=== PATIENT | male | born 1965 | race Caucasian/White ===

== ENCOUNTER 2016-05-01 20:06 | Emergency (ER) | payer OTHER ==
[~2016-05-01] VITALS: Ht 167.6 cm; Wt 78.5 kg
[2016-05-01 21:17] VITALS: Ht 167.6 cm; Wt 78.5 kg
[2016-05-01] MEDS ORDERED: DICLOFENAC SODIUM 37.5 MG/ML VIAL IV STA (21:51)
[2016-05-01] MEDS ORDERED: SOD CHLORIDE 0.9% 1,000 ML IV STA (21:51)
[2016-05-01 22:25] LABS: ADD SCAN DIFF NO
[2016-05-01 22:27] LABS: BASOPHIL # 0.1 10^3/ul (0.0-0.1); BASOPHILS % 0.8 % (0.0-2.0); EOSINOPHILS # 0.5 10^3/ul (0.0-0.5); HEMATOCRIT 41.6 % (42.0-52.0); HEMOGLOBIN 14.2 g/dl (14.0-18.0); LYMPHOCYTES # 2.8 10^3/ul (0.8-2.9); LYMPHOCYTES % 35.8 % (15.0-51.0); MEAN CORPUSCULAR HEMOGLOBIN 31.8 pg (29.0-33.0); MEAN CORPUSCULAR HGB CONC 34.1 g/dl (32.0-37.0); MEAN CORPUSCULAR VOLUME 93.1 fl (82.0-101.0); MEAN PLATELET VOLUME 10.6 fl (7.4-10.4); MONOCYTE # 0.7 10^3/ul (0.3-0.9); MONOCYTES % 8.5 % (0.0-11.0); NEUTROPHIL # 3.8 10^3/ul (1.6-7.5); NEUTROPHILS % 48.4 % (39.0-77.0); PLATELET COUNT 223 10^3/UL (140-415); RED BLOOD COUNT 4.47 10^6/ul (4.70-6.10); RED CELL DISTRIBUTION WIDTH 13.1 % (11.5-14.5); WHITE BLOOD COUNT 7.8 10^3/ul (4.8-10.8)
[2016-05-01 22:29] LABS: ADD UMIC YES; URINE BILIRUBIN (Dip) NEGATIVE (NEGATIVE); URINE BLOOD (Dip) 3+ (NEGATIVE); URINE COLOR YELLOW (YELLOW); URINE GLUCOSE (Dip) NEGATIVE (NEGATIVE); URINE KETONES (Dip) TRACE (NEGATIVE); URINE LEUKOCYTE ESTERASE (Dip) NEGATIVE (NEGATIVE); URINE NITRITE (Dip) NEGATIVE (NEGATIVE); URINE TOTAL PROTEIN (Dip) TRACE (NEGATIVE); URINE UROBILINOGEN (Dip) 1.0 E.U./dL (0.1-1.0)
--- NOTE | 2016-05-01 22:35 | RADRPT ---
PROCEDURE: CT KUB. CLINICAL INDICATION: Lower abdominal pain, pelvic pain, and painful urination TECHNIQUE: CT KUB (Renal Stone Survey) without contrast was performed on a [employer] volumetric [address] scanner. No IV contrast was administered. 3-D coronal reformatted images were obtained from the axial source images. CTDI: 12.4 mGy DLP: 664 mGy-cm COMPARISON: No prior studies are available for comparison. FINDINGS: Limited evaluation of the lung bases are clear. No pleural effusion. A hypodense lesion within the inferior right liver lobe measuring approximately 8 mm is incompletely characterized without intravenous contrast but may represent a cyst. Otherwise, the unenhanced lucrecia er is normal-appearing. The unenhanced spleen, bilateral adrenal glands, pancreas, and gallbladder are normal-appearing. No biliary dilatation. Aside from a few tiny sub-centimeter right renal hypodense lesions which may represent cysts, the ki dneys are normal-appearing without hydronephrosis. The appendix is normal. There is sigmoid bowel wall thickening associated with pericolonic fat stranding on a background of diverticulosis consistent with acute uncomplicated sigmoid diverticulitis. No fluid collections. N o free air. No abdominal pelvic adenopathy. No bowel obstruction. The urinary bladder is decompressed and suboptimally evaluated. The abdominal aorta is normal in caliber though incompletely characterized without intravenous contr ast. No suspicious osseous lesions. Degenerative disk disease at L5-S1. IMPRESSION: Acute sigmoid diverticulitis without fluid collection or free air. Urinary bladder is decompressed but is situated adjacent to the inflammatory colonic changes. Physician Lara Date Time Electronically viewed and signed by Physician Lara on 05/01/2016 22:35 ML/
[2016-05-01 22:37] LABS: ALBUMIN 4.2 g/dl (3.3-4.9); POTASSIUM 3.5 mmol/L (3.5-5.1)
[2016-05-01 22:39] LABS: BILIRUBIN,INDIRECT 0.2 mg/dl (0-1.1); BILIRUBIN,TOTAL 0.2 mg/dl (0.2-1.3); CREATININE 0.89 mg/dl (0.61-1.24)
[2016-05-01 22:40] LABS: ALBUMIN/GLOBULIN RATIO 1.31; CALCIUM 8.6 mg/dl (8.4-10.2); TOTAL PROTEIN 7.4 g/dl (6.1-8.1)
[2016-05-01 23:01] LABS: BACTERIA,URINE RARE
[2016-05-01] MEDS ORDERED: CIPR500T4 PO (23:09)
[2016-05-01] MEDS ORDERED: METR500T14 PO (23:09)
--- NOTE | 2016-05-01 23:12 | ERD ---
ER Documentation Chief Complaint Date/Time DATE: 05/01/16 TIME: 23:10 Chief Complaint Pelvic pain with painful urination and frequency of urination HPI Patient is a 50-year-old male who presents with lower left-sided abdominal pain that he has had for 2 days. He denies any nausea or vomiting. Does state he has had a fever on and off. Denies any dysuria hematuria or increased urinary frequency. Denies any diarrhea. Denies any testicular pain. Has not taken any medications for this. ROS All systems reviewed and are negative except as per history of present illness. Medications Home Meds Active Scripts Metronidazole* (Metronidazole*) 500 Mg Tablet, 500 MG PO TID for 10 Days, TAB Prov:LUPE GREENBERG PA-C 05/01/16 Ciprofloxacin Hcl* (Ciprofloxacin Hcl*) 500 Mg Tablet, 500 MG PO BID for 10 Days , TAB Prov:LUPE GREENBERG PA-C 05/01/16 Allergies Allergies: Coded Allergies: No Known Allergy (Unverified , 05/01/16) PMhx/Soc Medical and Surgical Hx: pt denies Medical Hx, pt denies Surgical Hx Hx Alcohol Use: No Hx Substance Use: No Hx Tobacco Use: No Smoking Status: Never smoker FmHx Family History: No diabetes Physical Exam Vitals Vital Signs Date Time Temp Pulse Resp B/P Pulse Ox O2 Delivery O2 Flow Rate FiO2 05/01/16 21:17 99.6 91 18 126/75 97 Physical Exam General: well developed, well nourished, alert, nontoxic, no distress Head: normocephalic, atraumatic Eyes: PERRL, normal conjunctiva Neck: Supple, nontender, no lymphadenopathy, no midline tenderness Respiratory: Clear to auscaultation bilaterally, speaks in full sentences, no use of accesory muscles or labored breathing, no rales, ronchi, or wheezing Cardiovascular: RRR, No murmurs GI: soft, left lower quadrant tenderness, non distended, negative murphys sign, negative mcburneys point tenderness, no cva tenderness bilaterally, no rebound or guarding Result Diagram: 05/01/16220405/01/162204 Results 24 hrs Laboratory Tests Test 05/01/16 22:05 05/01/16 22:10 White Blood Count 7.810^3/ul Red Blood Count 4.4710^6/ul Hemoglobin 14.2g/dl Hematocrit 41.6% Mean Corpuscular Volume 93.1fl Mean Corpuscular Hemoglobin 31.8pg Mean Corpuscular Hemoglobin Concent 34.1g/dl Red Cell Distribution Width 13.1% Platelet Count 75465^3/UL Mean Platelet Volume 10.6fl Neutrophils % 48.4% Lymphocytes % 35.8% Monocytes % 8.5% Eosinophils % 6.0% Basophils % 0.8% Nucleated Red Blood Cells % 0.0/100WBC Neutrophils # 3.810^3/ul Lymphocytes # 2.810^3/ul Monocytes # 0.710^3/ul Eosinophils # 0.510^3/ul Basophils # 0.110^3/ul Nucleated Red Blood Cells # 0.010^3/ul Sodium Level 142mmol/L Potassium Level 3.5mmol/L Chloride Level 104mmol/L Carbon Dioxide Level 25mmol/L Anion Gap 17 Blood Urea Nitrogen 20mg/dl Creatinine 0.89mg/dl Glucose Level 111mg/dl Calcium Level 8.6mg/dl Total Bilirubin 0.2mg/dl Direct Bilirubin 0.00mg/dl Indirect Bilirubin 0.2mg/dl Aspartate Amino Transf (AST/SGOT) 53IU/L Alanine Aminotransferase (ALT/SGPT) 53IU/L Alkaline Phosphatase 116IU/L Total Protein 7.4g/dl Albumin 4.2g/dl Globulin 3.20g/dl Albumin/Globulin Ratio 1.31 Lipase 75U/L Urine Color YELLOW Urine Clarity CLEAR Urine pH 6.0 Urine Specific Brielle 1.025 Urine Ketones TRACE Urine Nitrite NEGATIVE Urine Bilirubin NEGATIVE Urine Urobilinogen 1.0 E.U./dL Urine Leukocyte Esterase NEGATIVE Urine Microscopic RBC 10-25/HPF Urine Microscopic WBC 0-2/HPF Urine Bacteria RARE Urine Hemoglobin 3+ Urine Glucose NEGATIVE% Urine Total Protein TRACE Current Medications Medications (Trade) Dose Ordered Sig/Chilo Route PRN Reason Start Time Stop Time Status Last Admin Dose Admin Sodium Chloride (NS) 1,000 ml @ 1,000 mls/hr Q1H STAT IV 05/01/16 21:51 05/01/16 22:50 DC 05/01/16 22:31 Diclofenac Sodium (Dyloject) 37.5 mg ONCE STAT IV 05/01/16 21:51 05/01/16 21:53 DC 05/01/16 22:31 Procedures/[facility] Patient is a 50-year-old male who presents with left lower quadrant tenderness. A low-grade temperature 98.6. He is otherwise well-appearing. He has no tenderness over his appendix or over his gallbladder. I doubt acute abdomen. He has no nausea or vomiting and is tolerating oral intake. Patient's labs were unremarkable however CT scan did show evidence of diverticulitis and he can be managed outpatient I believe with Ketan and Batsheva. Recommended this patient follow up with her primary care doctor within 48 hours or return to the emergency room for any worsening of symptoms. However this time I do believe there is suitable for outpatient management. I answered all their questions and they agreed with the plan and were discharged home. Departure Diagnosis: Primary Impression: Diverticulitis Condition: Stable Patient Instructions: Diverticulitis Additional Instructions: Llame al doctor APRIL y [place] verito ESSIE PARA DENTRO DE 1-2 HENNESSY.Dgale a la secretaria que nosotros le instruimos hacer esta essie.Avise o llame si jack condicin se empeora antes de la essie. Regresa aqui si peor o no mejor. LUPE GREENBERG PA-C May 01, 2016 23:12
== END 2016-05-01 23:20 | disposition home or self-care (01) ==
LOC: FTE 20:06
DX: K57.92 Diverticulitis of intestine, part unspecified, without perforation or abscess without bleeding (principal)
CPT/HCPCS: 36415; 74176; 80053; 81001; 83690; 85025; 96374; J7030; Z7502; Z7610; 81003